=== PATIENT | male | born 1960 | race Caucasian/White ===

== ENCOUNTER → 2017-05-02 13:58 | Outpatient (CLI) | payer BC, SELFPAY ==
[2016-09-17 08:18] VITALS: BMI 23.5
--- NOTE | 2017-05-02 14:00 | ECHOD_ITS ---
Reason For Study: CAD Procedure This was a 2D Doppler, Color Flow transthoracic echocardiogram. Exam performed in department. Left Ventricle Normal size and thickness. The estimated ejection fraction is 65 %. Normal diastology for age. No regional wall motion abnormalities noted. Right Ventricle Normal size and thickness. Normal systolic function. Atria Normal left atrium. Normal right atrium. Normal atrial septum. Mitral Valve The mitral valve is structurally normal. No prolapse or stenosis seen. Trivial mitral valve insufficiency. Tricuspid Valve Normal tricuspid valve. Unable to estimate RV systolic pressure/pulmonary artery pressure due to technically difficult study. Aortic Valve Trisinus/trileaflet aortic valve. Mild focal aortic valve thickening. Pulmonic Valve Normal pulmonic valve. Great Vessels Normal aortic root. Normal arch. Normal inferior vena cava. Inferior vena cava collapse with sniff. Pericardium/Pleural No pericardial effusion. MMode/2D Measurements & Calculations LVIDd: 4.9 cm IVSd: 0.87 cm LVOT diam: 2.0 cm LVIDs: 3.8 cm LVPWd: 0.94 cm LVOT area: 3.2 cm2 RVDd: 3.9 cm FS: 23.5 % Ao root diam: 3.3 cm LAV(MOD-bp): 54.9 ml LA A4 area: 18.4 cm2 LA dimension: 3.7 cm LAV(MOD-bp) Indexed: 27.8 ml/m2 LAV(MOD-sp2): 52.8 ml LAV(MOD-sp4): 52.0 ml RA A4 area: 16.1 cm2 Doppler Measurements & Calculations MV E max mitch: 89.3 cm/sec Ao V2 max: 130.2 cm/sec LV V1 max: 114.7 cm/sec MV A max mitch: 36.4 cm/sec Ao max P.8 mmHg LV V1 max P.3 mmHg MV E/A: 2.4 CONNIE(V,D): 2.8 cm2 PA V2 max: 107.7 cm/sec Interpretation Summary The estimated ejection fraction is 65 %. Normal diastology for age. Trivial to mild mitral valve insufficiency. Unable to estimate RV systolic pressure/pulmonary artery pressure due to technically difficult study. Compared to echo report dated 09/17/2016, LV function has completely normalized. MR remains about the same. Ordering Physician: Benny Gale Referring Physician: EDNA JC Performed By: Cecile Vann, LUCICS, RVT
== END ==
PROVIDERS: Family Provider Family Medicine; PCP Family Medicine; Visit Provider Internal Medicine Cardiovascular Disease
DX: I25.810 Atherosclerosis of coronary artery bypass graft(s) without angina pectoris (principal); F17.200 Nicotine dependence, unspecified, uncomplicated; Z95.5 Presence of coronary angioplasty implant and graft
CPT/HCPCS: 93306

== ENCOUNTER → 2018-04-24 09:31 | Outpatient (CLI) | payer BC, SELFPAY ==
[2016-09-17 08:18] VITALS: BMI 23.5
[2018-03-31 14:45] VITALS: BMI 22.8
--- NOTE | 2018-04-24 09:37 | STEWCON_ITS ---
Reason For Study: CAD Stress Results Protocol: Romie Protocol Maximum Predicted HR: 165 bpm Target HR: 140 bpm % Maximum Predicted HR: 85 % DurationHeart Rate Stage (mm:ss) (bpm) BP Comment BASELINE 62 150/883 CC DEFINITY STAGE 1 3:00 104 170/82 STAGE 2 3:00 141 210/841 CC DEFINITY RECOVERY 74 158/72 Stress Duration: 6:00 mm:ss Maximum Stress HR: 141 bpm Baseline Echocardiogram Findings The estimated ejection fraction is 55 %. Stress Echo Wall motion Data Resting WM Intermediate WM Stress WM Resting Wall Motion Wall Motion Stress Lateral-Basal: Mildly No regional wall motion hypokinetic. abnormalities noted. EKG Data Normal intervals are noted. The patient exercised according to the regular Romie protocol for a total duration of 6:00. The maximum heart rate attained was 146 beats per minute. This was 88% of maximum predicted heart rate. The patient exercised into stage 3 of the Romie protocol. During stress, there were no ST or T wave changes noted to suggest ischemia. No clinical angina was noted. Interpretation Summary The estimated ejection fraction is 55 %. Normal, adequate, treadmill echocardiogram. Negative for ischemia by EKG and echocardiographic criteria. Rare PVCs noted. Hypertensive blood pressure response to exercise. Below average exercise capacity for age. Patient had baseline mild inferior lateral hypokinesis due to previous myocardial infarction. During exercise all doshi contracted normally. Final LVEF of 65%. Test terminated due to the attainment of target heart rate, dyspnea and leg discomfort. No omplications.Decreased sensitivity due to poor echo windows requiring Definity enhancing agent. The study was technically difficult. Contrast injection was performed. Ordering Physician: Benny Gale Referring Physician: Benny Gale Performed By: Adrienne Marcus RDCS
== END ==
PROVIDERS: Family Provider Family Medicine; PCP Family Medicine; Referring Provider Internal Medicine Cardiovascular Disease; Visit Provider Internal Medicine Cardiovascular Disease
DX: I25.10 Atherosclerotic heart disease of native coronary artery without angina pectoris (principal); E78.5 Hyperlipidemia, unspecified; Z95.5 Presence of coronary angioplasty implant and graft
CPT/HCPCS: 93017; 93350; Q9957; A4216; C8928

== ENCOUNTER → 2018-11-04 14:55 | Outpatient (CLI) | payer BC, SELFPAY ==
[2016-09-17 08:18] VITALS: BMI 23.5
[2018-10-17 13:57] VITALS: BMI 22.1
--- NOTE | 2018-11-04 14:58 | ECHOD_ITS ---
Reason For Study: CHF Procedure This was a 2D Doppler, Color Flow transthoracic echocardiogram. Exam performed in department. Left Ventricle Normal size and thickness. The estimated ejection fraction is 65 %. Septal motion consistent with IVCD. Normal diastology for age. No regional wall motion abnormalities noted. Right Ventricle Normal size and thickness. Normal systolic function. Atria Normal left atrium. Normal right atrium. Normal atrial septum. Mitral Valve The mitral valve is structurally normal. No prolapse or stenosis seen. Trivial mitral valve insufficiency. Tricuspid Valve Normal tricuspid valve. Unable to estimate RV systolic pressure due to insufficient tricuspid regurgitant envelope. Aortic Valve Normal aortic valve. Trisinus/trileaflet aortic valve. Pulmonic Valve Normal pulmonic valve. Great Vessels Normal aortic root. Normal arch. Normal inferior vena cava. Inferior vena cava collapse with sniff. Pericardium/Pleural No pericardial effusion. MMode/2D Measurements & Calculations LVIDd: 4.9 cm IVSd: 0.81 cm Ao root diam: 3.2 cm LVIDs: 3.4 cm LVPWd: 0.77 cm RVDd: 3.5 cm FS: 30.9 % LAV(MOD-bp): 45.5 ml LVAd ap4: 32.5 cm2 SV(MOD-sp4): 59.6 ml LAV(MOD-bp) Indexed: 23.8 ml/m2 EDV(MOD-sp4): 106.5 ml LAV(MOD-sp2): 39.8 ml EDV(sp4-el): 111.0 ml LAV(MOD-sp4): 47.1 ml LVAs ap4: 19.8 cm2 ESV(MOD-sp4): 46.9 ml ESV(sp4-el): 49.0 ml EF(MOD-sp4): 56.0 % EF(sp4-el): 55.9 % SV(sp4-el): 62.0 ml LA A4 area: 18.6 cm2 LA dimension(2D): 3.2 cm RA A4 area: 17.3 cm2 Time Measurements MV dec time: 0.22 sec Doppler Measurements & Calculations MV E max kalpesh: 102.6 cm/sec Lat Peak E' Kalpesh: 18.0 cm/sec Med Peak E' Kalpesh: 10.7 cm/sec MV A max kalpesh: 45.9 cm/sec E/E' lat: 5.7 E/E' med: 9.6 MV E/A: 2.2 Ao V2 max: 138.4 cm/sec LV V1 max: 119.4 cm/sec Ao max P.7 mmHg LV V1 max P.7 mmHg Interpretation Summary The estimated ejection fraction is 65 %. Normal diastology for age. Trivial mitral valve insufficiency. Unable to estimate RV systolic pressure due to insufficient tricuspid regurgitant envelope. Compared to echo report dated 05/02/2017, no appreciable changes noted. Ordering Physician: Benny Gale Referring Physician: EDNA JC Performed By: Adrienne Marcus RDCS
== END ==
PROVIDERS: Family Provider Family Medicine; PCP Family Medicine; Referring Provider Internal Medicine Cardiovascular Disease; Visit Provider Internal Medicine Cardiovascular Disease
DX: I25.10 Atherosclerotic heart disease of native coronary artery without angina pectoris (principal); I11.0 Hypertensive heart disease with heart failure; I50.9 Heart failure, unspecified; I25.2 Old myocardial infarction; Z95.5 Presence of coronary angioplasty implant and graft
CPT/HCPCS: 93306

== ENCOUNTER → 2018-11-28 17:00 | Outpatient (CLI) | payer BC, SELFPAY ==
[2016-09-17 08:18] VITALS: BMI 23.5
[2018-10-17 13:57] VITALS: BMI 22.1
== END ==
PROVIDERS: Family Provider Family Medicine; PCP Family Medicine; Referring Provider Family Medicine; Visit Provider Family Medicine
DX: L02.212 Cutaneous abscess of back [any part, except buttock and flank] (principal)
CPT/HCPCS: 87070; 87077; 87186; 87205

== ENCOUNTER 2018-12-26 09:18 | Day surgery (SDC) | payer BC, SELFPAY ==
[2018-12-03 16:48] VITALS: BMI 23.5
[2018-12-09 15:11] VITALS: BMI 22.1
--- NOTE | 2018-12-15 08:43 | HP_ITS ---
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 [Ecotrin] 81 mg PO DAILY@0800 #30 tab 09/17/16 [Rx Confirmed 12/09/18] atorvastatin 80 mg tablet 80 mg PO QHS #90 tab 03/31/18 [Rx Confirmed 12/09/18] metoprolol succinate ER 25 mg tablet,extended release 24 hr 12.5 mg PO DAILY #45 tab 03/31/18 [Rx Confirmed 12/09/18] ticagrelor 90 mg tablet 90 mg PO BID #180 tab 03/31/18 [Rx Confirmed 12/09/18] PFSH Medical History Nicotine dependence (Resolved) Hypertension (Chronic) Atherosclerosis of coronary artery of [place] heart without angina pectoris (Chronic) ST elevation (STEMI) myocardial infarction (Chronic) Surgical History History of coronary artery stent placement (Chronic 09/15/16) Family History Mother Negative for ASCVD Social History (Updated 12/15/18 @ 08:43 by Nelson Franco MD) Smoking Status: Former smoker quit date: 09/15/16 pack-years: 65 alcohol intake: current alcohol intake frequency: a few times a week substance use type: former substance user HPI HPI HPI: TERRY STAHL, is a 58 M who presents to the office today for HPI HPI Surgical H&P: Yes HPI: TERRY STAHL, is a 58 M who presents to the office today for skin lesion on his back. He reports this is been there for 2 months. He was referred for possible malignancy. ROS General General: No weight change or fatigue Skin Additional Details: Skin lesion on his back Cardio Cardiovascular: No murmur, pacemaker, heart disease, atrial fibrillation, high blood pressure, heart attack, heart stent, palpitations, shortness of breat with exertion or chest pain Psych Psychiatric: No depression or anxiety Resp Respiratory: No shortness of breath, No sleep apnea, No cough, No COPD, No asthma, No emphysema, No wheezing Gastro Gastrointestinal: No abdominal pain, No nausea or vomiting, No diarrhea, No constipation, No blood in stool, No acid reflux, No hemorrhoids, No ulcers, No gallbladder problem, No black,tarry stools Clarence Hematologic: No blood thinners Exam Const General: cooperative Orientation: alert, oriented x3 Resp Effort & Inspection: normal respiratory effort Auscultation: clear to auscultation bilaterally Cardio Rate: regular rate Rhythm: regular rhythm Heart Sounds: no murmurs GI Inspection: non-distended Palpation: soft, nontender Skin Other: The patient has a skin lesion on his right lower back which measures approximately 2 cm in diameter. There is ulceration. There is some surrounding erythema. Assessment & Plan Problems 1. Skin lesion L98.9 Plan The patient has a 2 cm skin lesion on his right lower back. The patient has some surrounding erythema. This may be an infected back lesion but it is concerning for malignancy. I discussed excision under local anesthesia. I discussed the risks including bleeding, infection, need for skin graft. The patient agrees to local excision. Nelson Franco MD Pager: [facility] [address] [place] [address], [address] [place] [address] Office: Coding Level of Care Code Off vis,new,level 3 Diagnoses Skin lesion L98.9 12/15/18 0843 <Electronically signed by Nelson loredo MD> Date _ Nelson Franco MD I have re-examined the patient. There are no clinical changes since date of exam.
--- NOTE | 2018-12-26 | LES_PTH ---
PATIENT: TERRY STAHL [place] [facility] [id number] AGE/SX: 58/M ROOM: RE12/26/[address]: Dr. Nelson Franco MD : 1960 BED: DIS: 12/26/2018 SPEC #: [id number] RECD: 12/26/18 13:14 STATUS: RENNY BRINDA #: [id number] [place]: 12/26/18 00:[address]: Nelson Franco DEPT: SURGICAL PATHOLOGY RECD BY: Zhang Villavicencio ENTERED: 12/26/18 13:15 SP TYPE: Lesion OTHR DR: Dr. 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 Associated chronic and focal acute inflammation. See comment. AM:cody 12/29/18 COMMENT The lesion measures 1.6 cm in greatest dimension and is completely excised in the planes examined. Case has been reviewed in consultation with Dr. Valderrama who concurs with the above diagnosis. IDC:SJ MICROSCOPIC DESCRIPTION Slides are reviewed. GROSS DESCRIPTION Received in fixative is one container labeled with the patient's name and designated skin lesion of back. The specimen consists of an ellipse of light rojas excised skin measuring 4.1 x 2.2 and a depth of excision measuring 0.5 cm. The specimen has been oriented and is differentially inked as follows: medial - red, lateral - orange, superior - blue, inferior - black, deep -green. The cutaneous surface displays an ovoid, raised light pink-white lesion measuring 1.6 x 1.5 cm. The specimen is totally submitted in one cassette. / AM:cody 12/26/18 TC:0 CPT: 37021
[2018-12-26 09:47] VITALS: BP 127/88; PULSE 50; RESP 16; TEMP 36.1; O2SAT 100; BMI 23.6
[2018-12-26] MEDS: Lactated Ringers 1,000 ML 100 ML IV (10:12)
[2018-12-26] MEDS: Cefazolin 2 GM in 0.9% Normal Saline 100 ML IV (10:41)
[2018-12-26] MEDS: Bupivacaine Mpf 0.5% 30 ML VIAL (10:51)
--- NOTE | 2018-12-26 11:26 | PCM.DC ---
You will use the following diet at home:: No restrictions, Regular Your food should be the consistency of: Regular Discharge Activity: Return to Normal Activity, No Restrictions Call your doctor if your incision/area has: Continuous Slow Oozing, Sudden Increased Bleeding, Increased Pain/ Swelling, Increased Redness, Foul Smelling Discharge, Swelling at the incision site Call your doctor if you observe: Fever of 101 or Higher Change Dressing in (Days):: 2 - shower over dressing starting tomorrow Additional Instructions: Resume blood thinners saturday Allergies/Adverse Reactions: Allergies No Known Allergies Allergy (Verified 12/26/18 09:45) Medications to take at Discharge Aspirin E.C. [Ecotrin] 81 mg PO DAILY@0800 #30 tab 09/17/16 atorvastatin 80 mg tablet 80 mg PO QHS #90 tab 03/31/18 metoprolol succinate ER 25 mg tablet,extended release 24 hr 12.5 mg PO DAILY #45 tab 03/31/18 ticagrelor 90 mg tablet 90 mg PO BID #180 tab 03/31/18 Oxycodone HCl/Acetaminophen [Percocet 5/325] 1 - 2 tablet PO Q4H PRN PRN 3 Days #15 tablet 12/26/18 The following prescriptions were given: Oxycodone HCl/Acetaminophen [Percocet 5/325] 1 - 2 tablet PO Q4H PRN PRN 3 Days #15 tablet PRN Reason: Pain Transmission Status: Sent to [facility] Primary Care Physician: Quinton Kraus MD [Primary Care Provider] - Test Results: Test results from this visit will be discussed in further detail at your follow-up appointment, if applicable. Please Follow Up With: Nelson Franco MD When: Please call to schedule 1 week follow up appointment. [phone]
--- NOTE | 2018-12-26 11:27 | PCM.OPRPT ---
Problem List (1) Skin lesion of back Status: Acute Report of Operation Date of Procedure: 12/26/18 Pre-Operative Diagnosis: Skin lesion of the right lower back Post-Operative Diagnosis: Same Surgery/Procedure Performed:: Excision of skin lesion back Specimen's removed: Skin lesion with suture marking the medial margin and superior margin Description of Procedure: The patient was brought back to the operating room and placed in the left lateral decubitus position. The back was prepped and draped in usual sterile fashion. Skin marking was made with half centimeter margins surrounding the lesion. Next a mixture of lidocaine and Marcaine were injected at the proposed incision site. An incision was made with a scalpel. The lesion was sharply dissected free and circumferentially excised. The skin lesion measured approximately 4 cm in diameter including the margins. The specimen was marked and pressure was held on the incision. Next electrocautery was used to maintain hemostasis. The cavity was irrigated and dried. The incision was closed with interrupted vertical mattress 3-0 nylon sutures. A bandage was then applied. Patient was taken to PACU in stable condition and tolerated the procedure well. - Admit VTE Documentation VTE Mechan Device Prophylaxis: SCD's
== END 2018-12-26 11:34 | disposition home or self-care (01) ==
LOC: SDC 09:23 → AC 09:27
PROVIDERS: Family Provider Family Medicine; PCP Family Medicine; Referring Provider Surgery; Visit Provider Surgery
PROC: (CPT 11604; principal; 2018-12-26 10:50)
DX: C44.529 Squamous cell carcinoma of skin of other part of trunk (principal); I25.10 Atherosclerotic heart disease of native coronary artery without angina pectoris; I25.2 Old myocardial infarction; I10 Essential (primary) hypertension; Z95.5 Presence of coronary angioplasty implant and graft; Z79.82 Long term (current) use of aspirin; Z79.899 Other long term (current) drug therapy; Z87.891 Personal history of nicotine dependence
CPT/HCPCS: 11604; 88305; J7120

== ENCOUNTER → 2020-07-15 08:22 | Outpatient (CLI) | payer OTHER, SELFPAY ==
[2018-12-03 16:48] VITALS: BMI 23.5
[2019-11-09 15:35] VITALS: BMI 21.5
--- NOTE | 2020-07-15 08:26 | CT_ITS ---
STUDY: CT SOFT TISSUE NECK WITH CONTRAST REASON FOR EXAM: Male, 60 years old. LYMPHADENOPATHY. Left neck swelling. This improved with antibiotic therapy. RADIATION DOSAGE (If Supplied By Facility): CTDIvol = ( 20.59 ) mGy, DLP = ( 1090.65 ) mGycm TECHNIQUE: The patient was scanned in a multi-detector CT scanner. High resolution transaxial imaging was performed following intravenous administration of IV 75mL Isovue-370. Sagittal and coronal images were reconstructed. Individualized dose optimization techniques were used for this CT. COMPARISON: None. FINDINGS: There is a 6.9 mm x 8.9 mm rounded enhancing density in the deep inferior aspect of the right parotid gland. Correlation with ultrasound is recommended. 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 Normal bilateral parapharyngeal spaces. Normal bilateral carotid spaces. Normal bilateral sublingual and submandibular glands and spaces. Normal visualized nasopharynx. Normal retropharyngeal space. Normal perivertebral space. Normal visualized bilateral faucial tonsils. The visualized tongue, tongue base and oropharynx are normal. The visualized cervical lymph nodes (levels I-) are within normal size limits, and maintain normal morphology. There is no demonstrated solid or cystic mass lesion. There is no abnormal contrast enhancement. Normal epiglottis, bilateral vallecula and hypopharynx. The pre-epiglottic and paraglottic adipose spaces are normal. Normal visualized bilateral piriform sinuses, aryepiglottic folds, vocal cords, and arytenoid-cricoid articulations. Normal subglottic trachea. Normal bilateral lobes of the thyroid gland. Normal visualized pulmonary apices. Normal visualized paranasal sinuses. There is multilevel degenerative changes of the cervical spine. CT/Soft Tissue Neck WITH Contrast IMPRESSION: 6.9 mm x 8.9 mm enhancing density in the deep inferior aspect of the right parotid gland. Correlation with ultrasound is recommended for further evaluation. Electronically Signed: Mikle Smith MD at 9:10 EDT , Service support ,
== END ==
PROVIDERS: PCP Family Medicine; Referring Provider Family Medicine; Visit Provider Family Medicine
DX: R59.1 Generalized enlarged lymph nodes (principal)
CPT/HCPCS: 70491; Q9967

== ENCOUNTER → 2020-08-01 15:47 | Outpatient (CLI) | payer OTHER, SELFPAY ==
[2018-12-03 16:48] VITALS: BMI 23.5
[2019-11-09 15:35] VITALS: BMI 21.5
--- NOTE | 2020-08-01 15:52 | US_ITS ---
STUDY: PAROTID ULTRASOUND REASON FOR EXAM: Male, 60 years old. Facial swelling TECHNIQUE: Sonographic evaluation of the parotid glands and nearby subcutaneous tissue COMPARISON: CT scan from 07/15/2020 FINDINGS: Right parotid gland measures 3.6 x 2.76 x 2.3 cm and contains a 0.7 x 0.5 x 0.4 cm nodule with fatty hilum consistent with physiologic lymph node. The left parotid gland measures 4.3 x 1.98 x 2.2 cm it also contains a hypoechoic nodule with fatty hilum measuring 0.6 x 0.6 x 0.3 cm. This is also consistent with a physiologic lymph node. No suspicious shadowing solid nodule or architectural distortion. US/Head/Neck Soft Tissue IMPRESSION: Normal sized homogeneous parotid glands containing subcentimeter physiologic lymph nodes. No suspicious nodule or evidence of inflammation Electronically Signed: Evgeny Vega MD at 9:47 EDT , Service support ,
== END ==
PROVIDERS: PCP Family Medicine; Referring Provider Family Medicine; Visit Provider Family Medicine
DX: K11.8 Other diseases of salivary glands (principal)
CPT/HCPCS: 76536

== ENCOUNTER 2022-07-01 14:33 | Emergency (ER) | payer OTHER, SELFPAY ==
[2018-12-03 16:48] VITALS: BMI 23.5
[2022-07-01 14:34] VITALS: BP 169/87; PULSE 49; RESP 14; TEMP 36.1; O2SAT 100; BMI 20.7
--- NOTE | 2022-07-01 15:07 | ED.VIS.BACK ---
HPI History of Present Illness Chief Complaint: Back Narrative Narrative: 62-year-old male here for back pain. Patient denies any trauma. States has been having severe back pain that started today. Pain is located the right lower back. It is nonradiating. It is worse with sitting. Patient denies any saddle anesthesia, urinary tension, bowel or bladder incontinence, lower extremity weakness, fever or IV drug use, no recent spinal manipulation or surgery, no recent urinary catheterization. PFSH PFS Medical History (Updated 07/01/22 @ 16:[address] Hang Manjarrez, DO) Atherosclerosis of coronary artery of [place] heart without angina pectoris Hypertension Nicotine dependence ST elevation (STEMI) myocardial infarction Home Medications oxycodone 5 mg capsule 5 mg PO Q6H PRN pain 4 days #16 caps 07/01/22 [Rx Last Taken Unknown] Allergy/AdvReac Type Severity Reaction Status Date / Time No Known Allergies Allergy Verified 04/23/19 15:11 Family History Mother Negative for ASCVD Surgical History History of coronary artery stent placement (09/15/16) History of squamous cell carcinoma excision (~11/2018) Social History (Updated 11/09/19 @ 15:[address] Benny Gale MD) Smoking Status: Former smoker quit date: 09/15/16 pack-years: 65 alcohol intake: current alcohol intake frequency: a few times a week substance use type: former substance user caffeine: Yes Type: coffee Number of servings: 2 ROS ROS ED ROS Narrative Constitutional: Denies fever HEENT: Denies sore throat Neck: Denies neck pain Cardiovascular: Denies chest pain, syncope Respiratory: Denies shortness of breath GI: Denies nausea vomiting or abdominal pain : Denies changes in urinary habits, denies bowel or bladder incontinence Musculoskeletal: Denies muscle or joint pain Back: Endorses back pain Neurologic: Denies numbness weakness or loss of sensation Skin denies rash EXAM Physical Exam Narrative Exam Narrative: Nursing triage notes reviewed, Vital signs reviewed Constitutional: please see mdm HENT: MMM Eyes: Pupils equal round and reactive to light, Extraocular muscles intact Neck: No stridor, no JVD, full neck ROM Lungs: Clear to auscultation, No wheezing or rales. No increased work of breathing, no conversational dyspnea, no accessory muscle use, no nasal flaring. No respiratory distress noted Heart: Regular rate and rhythm, No murmurs, No rubs and No gallops, 2+ distal pulses (radial, femoral, posterior tibial) in all extremities Abdomen: Soft, there is no tenderness, rigidity, rebound or guarding, no obvious peritoneal signs, no palpable pulsatile abdominal masses, no auscultated abdominal bruit : No CVAT Extremities: No edema Back: TTP over right lower back, TTP over right piriformis muscle, no midline step-offs or deformities. Neuro: Intact sensation L1-S1 dermatomal distributions. Intact 5/5 strength in hip flexion (T12-L3). Knee extension (L2-L4). Ankle dorsiflexion (L4-L5). Ankle plantar flexion (S1). Great toe extension (L5). 2+ patellar and Achilles DTRs. Skin: No rash or lesions noted Const Vital Signs: 07/01/22 14:34 Temperature 97 F L Temperature Source Temporal Pulse Rate 49 L Respiratory Rate 14 Blood Pressure 169/87 H Blood Pressure Mean 114 Pulse Ox 100 Oxygen Delivery Method Room Air MDM MDM MDM Narrative Medical decision making narrative: Chief Complaint: Back pain External records reviewed: No recent MRIs of the back MDM The patient presented complaining of back pain. There was no history of recent fall or trauma. There was no evidence to support genitourinary etiology. There is also no evidence to suggest vascular pathology such as AAA dissection. No fevers or other evidence to suspect infectious processes, abscess, osteomyelitis etc. The patient?s neurological exam is normal with normal motor and sensory. There is no saddle paresthesias reported and no bowel or bladder incontinence or retention. I suspect the pain is mechanical in nature. Clinical suspicion, plan of care and management was discussed with the patient. The patient was instructed to follow up with their health care provider. The patient was also instructed to return if the pain worsened, changed, or developed weakness or bowel or bladder trouble. The patient agreed with plan. I completed a structured, evidence-based clinical evaluation to screen for acute non-traumatic spinal emergencies. The patient has a normal detailed neurologic exam and red flag historical factors were negative The evidence indicates that the patient is very low risk for an acute spinal emergency and this is consistent with my clinical intuition. The risk of further workup is higher than the likelihood of the patient having a spinal epidural abscess or other dangerous emergency spinal condition. It is, therefore, in the patient?s best interest not to do additional emergent testing at this time. Shared Decision-Making I have discussed with the patient my clinical impression and the result of an evidence-based clinical evaluation to screen for spinal epidural abscess and other spinal emergencies, as well as the risk of further testing and hospitalization. The evidence shows that the risk for an acute spinal emergency is less than 1%. Although the risk of an acute spinal emergency has not been completely eliminated, the risks of further testing likely exceed any potential benefit, and the patient agrees with not pursuing further emergent evaluation for causes of back pain at this time. Factors affecting care: Hyperlipidemia, CAD, hypertension Social determinants of health: History obtained from others: Consults: None Discharge Plan Triage Chief Complaint: Back ED Provider: Hang Manjarrez Dx/Rx/DC Orders Clinical Impression: Acute lumbar radiculopathy Instructions: ED Sciatica Prescriptions: New oxycodone 5 mg capsule 5 mg PO Q6H PRN (Reason: pain) 4 Days Qty: 16 0RF Stand Alone Forms: ED Work / School Excuse Primary Care Provider: Quinton Kraus Referrals: Quinton Kraus MD [Primary Care Provider] - Activity Restrictions/Additional Instructions: Thank you for trusting us with your care today! Please take Tylenol (2 pills, 650 mg), ibuprofen (2 pills, 400 mg) every 6 hours as needed for pain and fever control. If this does not control your pain please take oxycodone. Please return to the emergency department if your symptoms change or worsen. Please follow with your primary care physician for further outpatient evaluation and management. Disposition Disposition: Home, Self Care Discharge Date/Time: 07/01/22 17:00
[2022-07-01] MEDS: oxyCODONE 5 MG Tablet PO (16:05)
[2022-07-01] MEDS: Acetaminophen 325 MG Tablet 650 MG PO (16:05)
[2022-07-01] MEDS: Ibuprofen 200 MG Tablet 400 MG PO (16:05)
[2022-07-01] MEDS: dexAMETHasone 4 MG Tablet 6 MG PO (16:58)
== END 2022-07-01 17:00 | disposition home or self-care (01) ==
PROVIDERS: Emergency Provider Emergency Medicine; PCP Family Medicine; Visit Provider Emergency Medicine
DX: M54.16 Radiculopathy, lumbar region (principal); I25.10 Atherosclerotic heart disease of native coronary artery without angina pectoris; I25.2 Old myocardial infarction; Z87.891 Personal history of nicotine dependence; Z95.5 Presence of coronary angioplasty implant and graft
CPT/HCPCS: 99281; 99283

== ENCOUNTER 2023-01-19 02:06 | Inpatient (IN) | payer OTHER, SELFPAY ==
[2018-12-03 16:48] VITALS: BMI 23.5
[2023-01-19] VITALS (10 sets, daily range): BP systolic 117–166; BP diastolic 64–84; PULSE 61–82; RESP 16–20; TEMP 35.9–36.8; O2SAT 92–100; BMI 21.2; BMI 20.2
--- NOTE | 2023-01-19 02:24 | RAD_ITS ---
INDICATION: chest pain EXAMINATION/TECHNIQUE: X-RAY - XR Chest 2 Views COMPARISON: None. FINDINGS: LINES/DEVICES: None. LUNGS: No consolidation or evidence of an effusion. No evidence of edema or a pneumothorax. Hyperinflation of the lungs which may represent COPD. MEDIASTINUM AND CARDIOVASCULAR STRUCTURES: Cardiac silhouette is normal in size and contour. Mediastinum is unremarkable. BONES AND SOFT TISSUES: No acute abnormality. RAD/Chest PA and Lateral IMPRESSION: No evidence of acute cardiopulmonary disease. Electronically Signed: Eleazar New DO at 2:44 EDT ,
--- NOTE | 2023-01-19 02:24 | EKG12_ITS ---
Test Reason : CP Blood Pressure : / mmHG Vent. Rate : 067 BPM Atrial Rate : 067 BPM P-R Int : 144 ms QRS Dur : 088 ms QT Int : 374 ms P-R-T Axes : 085 -09 066 degrees QTc Int : 395 ms Sinus rhythm with occasional Premature ventricular complexes Possible Left atrial enlargement Borderline ECG Confirmed by LJ MCGOWAN, EUGENIA ([id number]), fashion editor TAYLOR SIMMONS ([id number]) on 01/28/2023 6:57:08 AM Referred By: LALIT Confirmed By:LULU CALHOUN MD
--- NOTE | 2023-01-19 02:26 | EDS_ITS ---
HPI History of Present Illness Chief Complaint: Chest Pain Informant: patient, spouse/S.O. and EMS Narrative Narrative: Patient is a 62-year-old male with past medical history of coronary artery disease requiring stent placement in 2017. He also has a history of nicotine abuse/dependence. Patient states he has had a head cold for the last few days with some congestion drainage and cough. He states he woke around 1245 this evening secondary to feeling shortness of breath. He states he then noticed he was having some left anterior chest pain. He states there was no radiation of the pain to his neck back or down the arm. Patient reports he did feel s weaty. He states that because of his previous heart attack history he was concerned that symptoms were related to a repeat heart attack and therefore called EMS. Patient states that the pain lasted for approximately 1245 until 130/145 and then resolved. He states he did take a full-strength aspirin prior to arrival [facility] Medical History Atherosclerosis of coronary artery of [place] heart without angina pectoris Hypertension Nicotine dependence ST elevation (STEMI) myocardial infarction Home Medications NK 01/19/23 [History Last Taken Unknown] Allergy/AdvReac Type Severity Reaction Status Date / Time No Known Allergies Allergy Verified 01/19/23 02:08 Family History (Updated 01/19/23 @ 02:[address] Winnie Julien MD) Mother Negative for ASCVD Father Cancer Surgical History (Updated 01/19/23 @ 05:[address] Bandar Jeffries DO) History of coronary artery stent placement (09/15/16) History of squamous cell carcinoma excision (~11/2018) Social History (Updated 11/09/19 @ 15:[address] Benny Gale MD) household members: spouse Smoking Status: Current every day smoker tobacco type: cigarettes and cigars alcohol intake: current alcohol intake frequency: a few times a week substance use type: former substance user caffeine: Yes Type: coffee Number of servings: 2 ROS ROS ED Constitutional Constitutional ED: Reports chills, subjective and sweats; Denies fever(s) ENT ENT ED: Reports rhinorrhea and sore throat Cardiovascular Cardiovascular: Reports chest pain; Denies palpitations or racing heartbeat Respiratory/Chest Respiratory/Chest: Reports cough and dyspnea Gastrointestinal Gastrointestinal: Denies abdominal pain, diarrhea, nausea or vomiting Genitourinary Genitourinary ED: Denies dysuria Musculoskeletal Musculoskeletal: Denies myalgias Integumentary Denies rash Neurologic Neurologic: Denies headache(s) Hematologic/Lymphatic Hematologic/Lymphatic: Denies easy bleeding or easy bruising EXAM Physical Exam Const Vital Signs: 01/19/23 02:08 01/19/23 02:11 01/19/23 02:24 Temperature 96.7 F L 96.7 F L Temperature Source Temporal Temporal Pulse Rate 65 75 Respiratory Rate 16 Respiratory Effort Short of Breath Blood Pressure 166/84 H 166/84 H Blood Pressure Mean 111 111 Pulse Ox 100 97 Oxygen Delivery Method Room Air Room Air 01/19/23 03:36 Temperature Temperature Source Pulse Rate 61 Respiratory Rate 16 Respiratory Effort Blood Pressure 120/76 Blood Pressure Mean 90 Pulse Ox 95 Oxygen Delivery Method Room Air Positive well nourished and well developed General Appearance ED: well developed; Negative for pallor HEENT HEENT Narrative: Cobblestoning the posterior pharynx consistent with sinus drainage without airway edema or compromise No secondary changes to suggest infection Eyes PERRL and EOMs intact bilaterally General Eye ED: Negative for scleral icterus Neck supple and no JVD Neck Narrative: No nuchal rigidity or meningeal signs noted Chest Wall palpation of chest normal Chest Narrative: No bony deformity or crepitance Resp normal respiratory effort Resp Narrative: Breath sounds are diminished throughout with diffuse expiratory wheeze consistent with history of nicotine abuse/dependence However there is no nasal flaring retractions tachypnea or accessory muscle use Cardio regular rate and regular rhythm Rate: other Other Details: Heart is regular rate and rhythm without murmur rubs or gallops There is an occasional ectopic beat noted Radial and carotid pulses are equal and symmetric GI normal to inspection, nondistended, normoactive bowel sounds, non-tender, non- distended and no masses GI Narrative: Soft nontender and nondistended with normal active bowel sounds. No voluntary guarding or rigidity. No pulsatile mass or fluid wave Auscultation: normoactive bowel sounds Palpation: soft Extremity normal to inspection Extremity Narrative: No asymmetric edema no pitting edema negative Homans' sign bilaterally Neuro oriented x3, CN's II-XII intact bilaterally and no sensory deficits noted Sensorium / Orientation: alert Motor Exam: strength 5/5 throughout Psych mental status grossly normal Skin no rashes or lesions noted General Skin Exam: Negative for jaundice or pallor MDM MDM MDM Narrative Medical decision making narrative: Patient arrived to the ER slightly hypertensive otherwise with stable vitals. He reported sudden onset chest discomfort and has a known history of CAD. Differential diagnosis is acute coronary syndrome versus pulm embolus versus dissection and as he also reports he had congestion and drainage there is concern for pneumonia versus pneumothorax versus viral URI or muscular strain. Patient's EKG displayed no STEMI and as he was pain-free on arrival there is no need for emergent cardiology consultation. A work-up was obtained and his initial troponin is 25 but his 2-hour delta elevated by approximately 475 points to a value of 498. The patient's D-dimer is normal going against pulmonary embolus or dissection and this correlates with the fact he is pain-free. Case was discussed with cardiology on-call Dr. Garcia who recommends aspirin and heparin drip. The patient took a full-strength aspirin prior to arrival in ER so therefore the heparin drip was started. Medicine was then contacted to admit the patient in order to undergo further testing and treatment regarding his non- STEMI. The patient reports he has been pain-free for his entire ER stay and vitals have been stable as well with improvement of his blood pressure without treatment History & Record Review Discussion w/independent historian: Patient and Significant other Lab Data Attestation: I reviewed the patient's lab results. Labs: Laboratory Results - last 24 hr 01/19/23 01/19/23 02:15 04:13 WBC 11.0 RBC 4.76 Hgb 15.4 Hct 47.8 MCV 100.4 H MCH 32.4 H MCHC 32.2 RDW Std Deviation 51.0 H RDW Coeff of Roman 13.5 Plt Count 207 MPV 9.7 Immature Gran % (Auto) 0.700 Neut % (Auto) 65.3 Lymph % (Auto) 20.9 Chaves % (Auto) 8.0 Eos % (Auto) 4.4 Baso % (Auto) 0.7 Absolute Neuts (auto) 7.2 Absolute Lymphs (auto) 2.30 Nucleated RBC % 0 D-Dimer Quant (PE/DVT) 0.33 Sodium 138 Potassium 3.4 L Chloride 104 Carbon Dioxide 29.0 Anion Gap 5 BUN 9 Creatinine 1.02 Estim Creat Clear Calc 73.31 Est GFR (MDRD) Af Amer 96 Est GFR (MDRD) Non-Af 79 BUN/Creatinine Ratio 8.8 L Glucose 165 H Calcium 9.0 Magnesium 2.1 Troponin I High Sens 25 498 H* Radiography Diagnostic Testing: Clinical Impression(s) from Imaging Studies Chest X-Ray 01/19/23 02:24 IMPRESSION: No evidence of acute cardiopulmonary disease. Electronically Signed: Eleazar DO Shaq at 2:44 EDT Reading Location ID and State: [facility] / [place] Tel , Service support , Chest x-ray as interpreted by the emergency medicine physician reveals no acute infiltrate pneumothorax pleural effusion or widening of the mediastinum Management Discussion w/another healthcare provider: Hospitalist and Optimization Engineer Critical Care Time Critical Care Time: Yes Critical care time (excluding procedures): Discussing w/Patient &/or Family/Grill Chef, Discussing w/Consultants and - (Critical care time of 33 minutes) Discharge Plan Triage Chief Complaint: Chest Pain ED Provider: Bandar Jeffries Dx/Rx/DC Orders Clinical Impression: Acute non-ST elevation myocardial infarction (NSTEMI), Nicotine dependence, History of coronary artery stent placement, CAD (coronary artery disease) Prescriptions: No Action NK Primary Care Provider: Quinton Kraus Referrals: Quinton Kraus MD [Primary Care Provider] - Disposition Disposition: Acute Care [facility]
[2023-01-19 02:33] LABS: Absolute Neutrophil Count 7.2 X10^3/uL (2.0-7.7); Basophil# 0.08 X10^3/uL; Basophil% 0.7 % (0-1); Eosinophil# 0.48 X10^3/uL; Eosinophils% 4.4 % (0-5); Hematocrit 47.8 % (40-54); Hemoglobin 15.4 g/dL (13.0-16.5); Lymphocyte % 20.9 % (19-41); Mean Corp Hgb Conc 32.2 g/dL (32-36); Mean Corpuscular Hgb 32.4 pg (27.0-32.0); Mean Corpuscular Volume 100.4 fL (80-94); Mean Platelet Vol. 9.7 fl (6.2-12.0); Monocyte# 0.88 X10^3/uL; NRBC Flagged by Analyzer 0 % (0-5); Neutrophil # 7.18 X10^3/uL (2.7-7.7); Neutrophil % 65.3 % (47-70); Platelet Count 207 K/mm3 (150-450); RBC Distribution Width CV 13.5 % (11.6-14.6); Red Blood Count 4.76 M/mm3 (4.6-6.2)
[2023-01-19 02:50] LABS: Anion Gap 5 (5-15); BUN 9 mg/dL (7-18); BUN/Creat Ratio 8.8 RATIO (10-20); Chloride 104 mmol/L (98-107); Creatinine, Serum 1.02 mg/dL (0.70-1.30); EST Glomerular Filtration Rate 79 mL/min (>60); Est Glom Filt Rate - Afr Amer 96 mL/min (>60); Estimated Creatinine Clearance 73.31 ml/min; Glucose 165 mg/dL (74-106); Magnesium 2.1 mg/dL (1.6-2.6); Potassium 3.4 mmol/L (3.5-5.1); Sodium Level 138 mmol/L (136-145); Troponin-I HS 25 pg/mL (3.0-78.0)
[2023-01-19 02:53] LABS: D-Dimer Quantitative (DVT/PE) 0.33 FEU/ug/m (0.27-0.49)
[2023-01-19 04:38] LABS: Troponin-I HS 498 pg/mL (3.0-78.0)
--- NOTE | 2023-01-19 04:57 | PCM.HP.STD ---
HPI - General General Date of Admission: 01/19/23 Date of Service: 01/19/23 Chief Complaint: Chest pain. HPI Narrative RICThe patient is a 62 y/o M w/ PMHx: CAD s/p PCI, HTN, HLD, Tobacco use who presents to the [facility] ED on 01/19/23 with history of onset of congestion, mild rhinorrhea and cough over the last 2 to 3 days however on day of presentation to the ED he noted awakening approximately at 12:45 PM with sensation of dyspnea with left anterior chest discomfort with no radiation with diaphoresis given his previous IA prompted ED evaluation with pain lasting from 1245 until approximately 145 following which it resolved with self administration of a full-strength aspirin prior to ED evaluation. who is present denies herself having any upper respiratory type symptoms. From discussions it does appear that patient has been off his medication including aspirin therapy and from discussions he mentioned some type of healthcare provider telling him he could come off of these but uncertain as to who this was and when exactly including off of any aspirin therapy. He rates the discomfort as more of an aching but does state it is difficult to describe it and initially rated it potentially 7-10 out of 10 in severity, currently completely resolved. notes that when she did see him he was very pale, diaphoretic with chest discomfort and describe dyspnea as well. Work-up in the ED included T96.7, heart rate 65, BP 166/84, respiratory rate 16, 100% on room air, CBC with WBC 11.0, hemoglobin 15.4, platelet 207 without marked shift, D-dimer 0.33, BMP with potassium 3.4, glucose 165 otherwise not marked appearing, magnesium 2.1, troponin 25 with repeat 498, chest x-ray with no acute cardiopulmonary finding, rapid SARS COVID and influenza antigens negative, EKG with sinus rhythm with no acute evidence of ischemia. In the ED patient initiated on heparin drip. ED discussed case with Dr. aGrcia, Cardiology. [facility] Medical History (Updated 01/19/23 @ 05:[address] Winnie Julien MD) Atherosclerosis of coronary artery of [place] heart without angina pectoris Dyslipidemia Hypertension Nicotine dependence ST elevation (STEMI) myocardial infarction Home Medications NK 01/19/23 [History Last Taken Unknown] Allergy/AdvReac Type Severity Reaction Status Date / Time No Known Allergies Allergy Verified 01/19/23 02:08 Family History (Updated 01/19/23 @ 05:[address] Winnie Julien MD) Mother No significant past medical history Father Cancer Surgical History History of coronary artery stent placement (09/15/16) History of squamous cell carcinoma excision (~11/2018) Social History (Updated 01/19/23 @ 05:[address] Winnie Julien MD) household members: spouse Smoking Status: Current some day smoker how long ago did patient quit smoking: Quit cigarettes following prior IA, now only occasional cigar. alcohol intake: current alcohol intake frequency: holidays/special occasions only substance use type: former substance user caffeine: Yes Type: coffee Number of servings: 2 ROS ROS Narrative Admission Review of Systems: CONSTITUTIONAL: No weight loss, fever, chills, + weakness or fatigue. HEENT: + Congestion, rhinorrhea. Eyes: No visual loss, blurred vision, double vision or yellow sclerae. Ears, Nose, Throat: No hearing loss, sneezing. SKIN: No rash or itching, lesions, wounds. CARDIOVASCULAR: + Chest pain/aching. No palpitations, edema, orthopnea, syncopal events. RESPIRATORY: + Shortness of breath. No cough or sputum, wheezing, hemoptysis. GASTROINTESTINAL: No anorexia, nausea, vomiting or diarrhea, abdominal pain, melena, BRBPR. GENITOURINARY: No dysuria, frequency, urgency or retention. NEUROLOGICAL: No headache, dizziness, syncope, paralysis, ataxia, numbness or tingling in the extremities, focal weakness, change in bowel or bladder control, seizure. MUSCULOSKELETAL: + muscle, back pain, joint pain or stiffness. HEMATOLOGIC: No anemia, bleeding or bruising. LYMPHATICS: No enlarged nodes. No history of splenectomy. PSYCHIATRIC: No history of depression or anxiety. ENDOCRINOLOGIC: + reports of sweating. No cold or heat intolerance. No polyuria or polydipsia. ALLERGIES: No history of asthma, hives, eczema or rhinitis. Vital Signs Vital Signs Vital Signs: 01/19/23 02:08 01/19/23 02:11 01/19/23 02:24 Temperature 96.7 F L 96.7 F L Temperature Source Temporal Temporal Pulse Rate 65 75 Respiratory Rate 16 Respiratory Effort Short of Breath Blood Pressure 166/84 H 166/84 H Blood Pressure Mean 111 111 Pulse Ox 100 97 Oxygen Delivery Method Room Air Room Air 01/19/23 03:36 Temperature Temperature Source Pulse Rate 61 Respiratory Rate 16 Respiratory Effort Blood Pressure 120/76 Blood Pressure Mean 90 Pulse Ox 95 Oxygen Delivery Method Room Air Weight Weight: 148 lb 5.938 oz Body Mass Index (BMI) 21.2 Physical Exam Narrative Physical Examination: General: Awake, alert, oriented x 3 and cooperative, seated upright in the ED bed, fatigued, flat affect. Skin: Normal color, normal turgor, no icterus, no cyanosis. HEENT: AT/NC, EOMI, PERRLA, mildly dry MM, nares mildly boggy and erythematous, no carotid bruits or JVD noted. Lungs: Mildly diminished, greater bases, proper effort, no rales, ronchi or wheezing. Heart: Regular rate and rhythm; no gallop, rub audible. Abdomen: Soft, NTTP, ND, normal BS, no appreciated HSM. Extremities: No cyanosis, clubbing, or edema. Neurological: Patient awake, alert, oriented as noted, cognitive function intact; pupils equally reactive to light and accommodation, cranial nerves II-XII grossly normal, moving all 4 extremities, no focal deficits, strength mildly globally decreased secondary to acute presentation complaints Psychiatric: Affect appears fatigued, flat, no acute evidence of depressive or anxiety feelings. Results Lab / Micro Data 01/19/23 02:15 01/19/23 02:15 Labs: Laboratory Results - last 24 hr 01/19/23 02:15: WBC 11.0, RBC 4.76, Hgb 15.4, Hct 47.8, MCV 100.4 H, MCH 32.4 H, MCHC 32.2, RDW Std Deviation 51.0 H, RDW Coeff of Roman 13.5, Plt Count 207, MPV 9.7, Immature Gran % (Auto) 0.700, Neut % (Auto) 65.3, Lymph % (Auto) 20.9, [place] % (Auto) 8.0, Eos % (Auto) 4.4, Baso % (Auto) 0.7, Absolute Neuts (auto) 7.2, Absolute Lymphs (auto) 2.30, Nucleated RBC % 0, D-Dimer Quant (PE/DVT) 0.33, Sodium 138, Potassium 3.4 L, Chloride 104, Carbon Dioxide 29.0, Anion Gap 5, BUN 9, Creatinine 1.02, Estim Creat Clear Calc 73.31, Est GFR (MDRD) Af Amer 96, Est GFR (MDRD) Non-Af 79, BUN/Creatinine Ratio 8.8 L, Glucose 165 H, Calcium 9.0, Magnesium 2.1, Troponin I High Sens 25 01/19/23 04:13: Troponin I High Sens 498 H* Micro: Microbiology 01/19/23 02:28 Nasal Secretion SARS-CoV-2 & FLU Antigen (Rapid) - Final Radiology Impression Chest X-Ray 01/19/23 02:24 IMPRESSION: No evidence of acute cardiopulmonary disease. Electronically Signed: Eleazar New, at 2:44 EDT , Assessment & Plan Assessment/Plan (1) NSTEMI, initial episode of care: PLAN: Plan The patient is a 62 y/o M w/ PMHx: CAD s/p PCI, HTN, HLD, Tobacco use who presents to the [facility] ED on 01/19/23 with history of onset of congestion, mild rhinorrhea and cough over the last 2 to 3 days however on day of presentation to the ED he noted awakening approximately at 12:45 PM with sensation of dyspnea with left anterior chest discomfort with no radiation with diaphoresis given his previous IA prompted ED evaluation with pain lasting from 1245 until approximately 145 following which it resolved with self administration of a full-strength aspirin prior to ED evaluation. #1. Chest Pain w/ Acute NSTEMI: EKG in ED w/ sinus rhythm with no acute evidence of ischemia, CXR w/ no acute cardiopulmonary findings. Trop elevated, initial 25 with repeat delta 498. Will admit to PCU, maintain on a monitored bed, continue serial cardiac enzymes and EKGs, will continue heparin drip, magnesium 2.1, continue medical management w/ asa, add back low-dose BB, add back high-dose statin w/ AM FLP. ECHO requested. Cardiology consulted, evaluation pending. Maintain NPO after midnight with judicious hydration. ASA, NG. #2. Suspected acute viral syndrome: Rapid SARS COVID antigen and influenza and negative, full respiratory viral panel requested, recent symptoms likely secondary to an acute viral syndrome, will continue just hydration given cardiac catheterization likely pending, will continue with conservative and symptomatic treatment as needed. #3. Hypokalemia: Admission K+ 3.4, magnesium 2.1, supplementation given, repeat level in AM. #4. Hyperglycemia: Admission glucose 165, possibly stress response, he will A1c requested. #5. CAD: Status post PCI, will continue aspirin, add back to previous regimen of statin as well as low-dose metoprolol. #6. Hypertension: We will restart patient previous home dose of metoprolol, PRN hydralazine. #7. Hyperlipidemia: We will restart patient previous dose of statin, FLP in AM. #8. Tobacco Abuse: Encouraged cessation, inpatient consultation per RT, NR if desired. #9. DVT prophylaxis: Heparin drip. #10. CODE STATUS: Full code. Charges/Coding Visit Charges Inpatient E&M: 94982 Init Hosp L3
[2023-01-19 05:03] LABS: Prothrombin Time (Protime)PT. 13.6 SECONDS (11.7-14.9)
[2023-01-19] MEDS: HEPARIN/D5w 25,000 UNITS 25,000 UNITS/250 ML IV.SOLN. 8 UNITS CONT INF (05:05)
[2023-01-19] MEDS: Heparin Injection (Vial) 5,000 UNIT/ML VIAL 4000 UNIT IV (05:06)
--- NOTE | 2023-01-19 05:31 | ECHOCS_ITS ---
Reason For Study: CAD/ASHD Procedure This was a 2D Doppler, Color Flow transthoracic echocardiogram. Contrast injection was performed. Exam performed portable in patient room. Left Ventricle Normal LV size. The estimated ejection fraction is 35-40 %. Stage 2 diastolic dysfunction. [place] : Hypokinetic. septal hypokinesis. Right Ventricle Normal RV size. Normal systolic function. Atria Normal left atrium. Normal right atrium. No doppler evidence for ASD. Mitral Valve There is no mitral valve stenosis. No mitral valve insufficiency. Tricuspid Valve There is no tricuspid stenosis. Trivial tricuspid valve insufficiency. Pulmonary artery systolic pressure is 50-55 mmHg. Aortic Valve Trisinus/trileaflet aortic valve. There is no aortic stenosis. No aortic valve insufficiency. Pulmonic Valve There is no pulmonic valvular stenosis. No pulmonic valve insufficiency. Great Vessels Normal aortic root. Pericardium/Pleural No pericardial effusion. Medication Diluted definity 1ml given slow IV push to enhance endocardial definition. MMode/2D Measurements & Calculations LVIDd: 4.2 cm IVSd: 0.69 cm Ao root diam: 2.5 cm LVIDs: 2.6 cm LVPWd: 0.76 cm RVDd: 3.3 cm FS: 37.8 % LAV(MOD-bp): 39.0 ml LVAd ap4: 30.8 cm2 LVAd ap2: 27.0 cm2 LAV(MOD-bp) Indexed: 21.2 ml/m2 LVLd ap4: 7.9 cm LVLd ap2: 7.0 cm LAV(MOD-sp2): 32.3 ml EDV(MOD-sp4): 98.7 ml EDV(MOD-sp2): 88.2 ml LAV(MOD-sp4): 47.4 ml EDV(sp4-el): 101.7 ml EDV(sp2-el): 88.8 ml LVAs ap4: 22.6 cm2 LVAs ap2: 17.6 cm2 LVLs ap4: 7.6 cm LVLs ap2: 6.0 cm ESV(MOD-sp4): 53.9 ml ESV(MOD-sp2): 41.5 ml ESV(sp4-el): 56.9 ml ESV(sp2-el): 44.1 ml EF(MOD-sp4): 45.4 % EF(MOD-sp2): 52.9 % EF(sp4-el): 44.1 % SV(MOD-sp4): 44.8 ml SV(MOD-sp2): 46.7 ml SV(sp4-el): 44.9 ml LA A4 area: 16.9 cm2 LA dimension(2D): 3.3 cm RA A4 area: 9.6 cm2 Time Measurements MV dec time: 0.20 sec Doppler Measurements & Calculations MV E max kalpesh: 62.8 cm/sec Lat Peak E' Kalpesh: 9.2 cm/sec Med Peak E' Kalpesh: 5.9 cm/sec MV A max kalpesh: 50.0 cm/sec E/E' lat: 6.8 E/E' med: 10.6 MV E/A: 1.3 Ao V2 max: 119.2 cm/sec LV V1 max: 82.9 cm/sec MV dec slope: 316.1 cm/sec2 Ao max P.7 mmHg LV V1 max P.7 mmHg Ao V2 mean: 84.3 cm/sec Ao mean P.1 mmHg Ao V2 VTI: 23.8 cm PA V2 max: 85.8 cm/sec TR max kalpesh: 348.7 cm/sec TR max P.6 mmHg
[2023-01-19] MEDS: Potassium Chloride Oral Tablet 20 MEQ 40 MEQ PO (08:14)
[2023-01-19] MEDS: Aspirin 81 MG TAB.CHEW PO (08:15)
[2023-01-19] MEDS: 0.9% Normal Saline (1000mL) 1,000 ML 75 ML IV (08:15)
[2023-01-19] MEDS: Metoprolol(XL)Succ 25 MG Tablet 12.5 MG PO (08:15)
[2023-01-19 08:59] LABS: Hemoglobin A1c 5.3 % (3.8-5.6)
--- NOTE | 2023-01-19 09:05 | PN.HOSP_ITS ---
Reason for Visit Reason for Visit: Diagnoses Non-ST elevation (NSTEMI) myocardial infarction (01/19/23) Subjective Subjective Feels well. No current chest pain. Objective Data Objective Data Vital Signs: Vital Signs Temp Pulse Resp BP Pulse Ox O2 Del Method 36.2 C L 68 16 120/76 96 Room Air 01/19/23 08:01 01/19/23 08:15 01/19/23 08:01 01/19/23 08:01 01/19/23 08:01 01/19/23 08:22 Oxygen Delivery Method Room Air Weight: 63.8 kg Body Mass Index (BMI) 20.2 Lab / Micro Data 01/19/23 02:15 01/19/23 02:15 Labs: Laboratory Results - last 24 hr 01/19/23 02:15: WBC 11.0, RBC 4.76, Hgb 15.4, Hct 47.8, MCV 100.4 H, MCH 32.4 H, MCHC 32.2, RDW Std Deviation 51.0 H, RDW Coeff of [place] 13.5, Plt Count 207, MPV 9.7, Immature Gran % (Auto) 0.700, Neut % (Auto) 65.3, Lymph % (Auto) 20.9, [place] % (Auto) 8.0, Eos % (Auto) 4.4, Baso % (Auto) 0.7, Absolute Neuts (auto) 7.2, Absolute Lymphs (auto) 2.30, Nucleated RBC % 0, D-Dimer Quant (PE/DVT) 0.33, Sodium 138, Potassium 3.4 L, Chloride 104, Carbon Dioxide 29.0, Anion Gap 5, BUN 9, Creatinine 1.02, Estim Creat Clear Calc 73.31, Est GFR (MDRD) Af Amer 96, Est GFR (MDRD) Non-Af 79, BUN/Creatinine Ratio 8.8 L, Glucose 165 H, Calcium 9.0, Magnesium 2.1, Troponin I High Sens 25 01/19/23 02:29: PT 13.6, INR 1.0, APTT 30.0 01/19/23 04:13: Troponin I High Sens 498 H* 01/19/23 08:12: Hemoglobin A1c 5.3 Micro: Microbiology 01/19/23 02:28 Nasal Secretion SARS-CoV-2 & FLU Antigen (Rapid) - Final Radiography Diagnostic Testing: Radiology Impression Chest X-Ray 01/19/23 02:24 IMPRESSION: No evidence of acute cardiopulmonary disease. Electronically Signed: Eleazar New DO at 2:44 EDT , Physical Exam Const alert and no apparent distress HEENT head/scalp atraumatic and moist oral mucous membranes Resp normal respiratory effort, no retractions, no use of accessory muscles and clear to auscultation bilaterally Cardio regular rate, regular rhythm, S1 normal heart sound and S2 normal heart sound GI normal to inspection, nondistended, normoactive bowel sounds, soft to palpation, non-tender and non-distended Extremity normal to inspection Assessment & Plan Assessment/Plan (1) NSTEMI, initial episode of care: PLAN: Chest Pain w/ Acute NSTEMI: EKG in ED w/ sinus rhythm with no acute evidence of ischemia, CXR w/ no acute cardiopulmonary findings. Trop peaked at 1459 heparin drip, magnesium 2.1, c ontinue medical management w/ asa, add back low-dose BB, add back high-dose statin w/ AM FLP. Echo shows and EF 35-40%. Hypokinetic apex and septum. (65% in 2019) Cardiology consulted, evaluation pending. Maintain NPO after midnight with judicious hydration. ASA, NG. PLAN: Plan URI: Suspected acute viral syndrome: Rapid SARS COVID antigen and influenza and negative, full respiratory viral panel requested, recent symptoms likely secondary to an acute viral syndrome, will continue just hydration given cardiac catheterization likely pending, will continue with conservative and symptomatic treatment as needed. Chronic conditions: * CAD: Status post PCI, will continue aspirin, add back to previous regimen of statin as well as low-dose metoprolol. * Hypertension: We will restart patient previous home dose of metoprolol, PRN hydralazine. * Hyperlipidemia: We will restart patient previous dose of statin, FLP in AM. * Tobacco Abuse: Encouraged cessation, inpatient consultation per RT, NR if desired. DVT prophylaxis: Heparin drip. CODE STATUS: Full code. Charges/Coding Visit Charges Inpatient E&M: 26106 Subs Hosp L2
[2023-01-19 09:08] LABS: Troponin-I HS 1459 pg/mL (3.0-78.0)
--- NOTE | 2023-01-19 10:50 | CASEMGMT ---
RN?CM?TECHNICAL SALES ENGINEER?CM?to room to meet with patient for initial transition planning/care coordination?assessment.?RN?CM?introduced self and role at [facility].? Pt voices understanding and consents to?assessment?at this time.? Pt resting in bed in no distress at this time.? @ bedside. Pt is A/O at this time and answers all questions appropriately.?? Care providers, pharmacy, and demographics verified/updated at this time. PCP: Dr Kraus Specialists: none Preferred Pharmacy: [facility] Insurance: [facility] Prescription Benefit:?Yes. Pt has been on Brilinta in the past and used the 30-day savings card. He is not sure if he had a different insurance at that time. Living Will/HPOA:? Pt does not currently have LW/HCPOA. LNOK: , Nancy Living Arrangements: Lives w/. Independent. Works full-time Transportation:?Pt states drives self and states no transportation concerns at this time.? also drives. DME: ? Denies using any DME and denies needs.? HHC/SNF: No hx of either. No needs identified. Pt wishes to return home and states has no concerns with going home at time of discharge.? Pt states does not drink ETOH.??He smokes 5-7 cigars a day. CM?to follow for any further discharge planning/needs.? Pt voices no further concerns/needs at this time.? Advised pt to ask for?CM?if any further questions/concerns/needs arise.? Voices understanding. PLAN:??Home Follow for possible anti-coag. Jerome CONNOLLYN?RN?CM
[2023-01-19 11:24] LABS: Partial Thromboplast Time 46.2 Seconds (24.1-36.2)
--- NOTE | 2023-01-19 14:32 | PCM.CONS.C ---
Assessment & Plan Assessment/Plan (1) NSTEMI, initial episode of care: PLAN: Continue aspirin, heparin, statin, metoprolol. Cardiac cath on Saturday. HPI Consult Data Date of Consult: 01/19/23 HPI Narrative Reason for Consultation: Non-STEMI HPI Narrative: TERRY STAHL, is a 62 M who presents with left-sided chest pain associated with diaphoresis similar to what he had prior to his NH in 2017. He has history of CAD status post NH in 2017 treated with stent to the circumflex. Patient has had chest pain at 12:30 AM this morning. No further chest pain. His troponin went up to 1400s. [facility] Medical History (Updated 01/19/23 @ 09:[address] Augustine Smith, DO) Atherosclerosis of coronary artery of [place] heart without angina pectoris Dyslipidemia Hypertension Nicotine dependence ST elevation (STEMI) myocardial infarction Home Medications NK 01/19/23 [History Last Taken Unknown] Allergy/AdvReac Type Severity Reaction Status Date / Time No Known Allergies Allergy Verified 01/19/23 02:08 Family History (Updated 01/19/23 @ 05:[address] Winnie Julien MD) Mother No significant past medical history Father Cancer Surgical History History of coronary artery stent placement (09/15/16) History of squamous cell carcinoma excision (~11/2018) Social History (Updated 01/19/23 @ 05:[address] Winnie Julien MD) household members: spouse Smoking Status: Current some day smoker tobacco type: cigars how long ago did patient quit smoking: Quit cigarettes following prior NH, now only occasional cigar. alcohol intake: current alcohol intake frequency: holidays/special occasions only substance use type: former substance user caffeine: Yes Type: coffee Number of servings: 2 Physical Exam Const alert and oriented x3 HEENT normocephalic Eyes no scleral icterus Resp normal respiratory effort Psych mental status grossly normal Risk Stratification Risk Stratification Applicable: No Charges/Coding Visit Charges Inpatient E&M: 08604 Init Hosp L2 Objective Data Vital Signs: Vital Signs Temp Pulse Resp BP Pulse Ox O2 Del Method 98.3 F 67 16 117/76 97 Room Air 01/19/23 13:10 01/19/23 13:10 01/19/23 13:10 01/19/23 13:10 01/19/23 13:10 01/19/23 13:10 Oxygen Delivery Method Room Air Weight: 140 lb 10.479 oz Body Mass Index (BMI) 20.2 Intake & Output: Intake and Output for Last 24 Hours 01/17/23 01/18/23 01/19/23 23:59 23:59 23:59 Intake Total 57.2 / 57.2 Balance 57.2 / 57.2 Lab / Micro Data 01/19/23 02:15 01/19/23 02:15 Labs: Laboratory Results - last 24 hr 01/19/23 02:15: WBC 11.0, RBC 4.76, Hgb 15.4, Hct 47.8, MCV 100.4 H, MCH 32.4 H, MCHC 32.2, RDW Std Deviation 51.0 H, RDW Coeff of [place] 13.5, Plt Count 207, MPV 9.7, Immature Gran % (Auto) 0.700, Neut % (Auto) 65.3, Lymph % (Auto) 20.9, [place] % (Auto) 8.0, Eos % (Auto) 4.4, Baso % (Auto) 0.7, Absolute Neuts (auto) 7.2, Absolute Lymphs (auto) 2.30, Nucleated RBC % 0, D-Dimer Quant (PE/DVT) 0.33, Sodium 138, Potassium 3.4 L, Chloride 104, Carbon Dioxide 29.0, Anion Gap 5, BUN 9, Creatinine 1.02, Estim Creat Clear Calc 73.31, Est GFR (MDRD) Af Amer 96, Est GFR (MDRD) Non-Af 79, BUN/Creatinine Ratio 8.8 L, Glucose 165 H, Calcium 9.0, Magnesium 2.1, Troponin I High Sens 25 01/19/23 02:29: PT 13.6, INR 1.0, APTT 30.0 01/19/23 04:13: Troponin I High Sens 498 H* 01/19/23 08:12: Hemoglobin A1c 5.3, Troponin I High Sens 1459 H* 01/19/23 11:04: APTT 46.2 H Micro: Microbiology 01/19/23 05:13 Mucosa - Nasopharyngeal Respiratory Panel (PCR) - Final Rhinovirus 01/19/23 02:28 Nasal Secretion SARS-CoV-2 & FLU Antigen (Rapid) - Final Cardiology Labs/Tests 01/19/23 02:15: WBC 11.0, RBC 4.76, Hgb 15.4, Hct 47.8, MCV 100.4 H, MCH 32.4 H, MCHC 32.2, Plt Count 207, MPV 9.7, Immature Gran % (Auto) 0.700, Neut % (Auto) 65.3, Lymph % (Auto) 20.9, [place] % (Auto) 8.0, Eos % (Auto) 4.4, Baso % (Auto) 0.7, Absolute Neuts (auto) 7.2, Nucleated RBC % 0, D-Dimer Quant (PE/DVT) 0.33, Sodium 138, Potassium 3.4 L, Chloride 104, Carbon Dioxide 29.0, Anion Gap 5, BUN 9, Creatinine 1.02, Est GFR (MDRD) Af Amer 96, Est GFR (MDRD) Non-Af 79, BUN/Creatinine Ratio 8.8 L, Glucose 165 H, Calcium 9.0, Magnesium 2.1 01/19/23 02:29: PT 13.6, INR 1.0, APTT 30.0 01/19/23 08:12: Hemoglobin A1c 5.3 01/19/23 11:04: APTT 46.2 H Rhythm: EKG: ECHO: Stress Test: Cardiac Cath: PCI: CT Surgery: Holter monitor: EPS: PPM: CXR: Chest CT Scan: Radiography Diagnostic Testing: Radiology Impression Chest X-Ray 01/19/23 02:24 IMPRESSION: No evidence of acute cardiopulmonary disease. Electronically Signed: Eleazar New DO at 2:44 EDT , Echocardiogram 01/19/23 05:31 Interpretation Summary The estimated ejection fraction is 35-40 %. Stage [address] [place] : Hypokinetic. septal hypokinesis Ordering Physician: Winnie Julien Referring Physician: Quinton Kraus Performed By: Jacki Hastings RDCS, RVT
[2023-01-19] MEDS: Atorvastatin Calcium 80 MG Tablet PO (19:58)
[2023-01-19] MEDS: Temazepam 15 MG Capsule PO (19:58)
[2023-01-19] MEDS: Heparin Injection (Vial) 5,000 UNIT/ML VIAL IV (20:45)
[2023-01-20] VITALS (7 sets, daily range): BP systolic 128–143; BP diastolic 71–85; PULSE 61–66; RESP 16–18; TEMP 36.2–37; O2SAT 95–98; BMI 26.0
[2023-01-20 01:59] LABS: Absolute Lymphocyte Count 1.44 X10^3/uL (0.83-4.51); Absolute Neutrophil Count 6.6 X10^3/uL (2.0-7.7); Basophil# 0.06 X10^3/uL; Basophil% 0.6 % (0-1); Eosinophil# 0.25 X10^3/uL; Eosinophils% 2.7 % (0-5); Hematocrit 42.4 % (40-54); Hemoglobin 14.1 g/dL (13.0-16.5); Lymphocyte # 1.44 X10^3/ul (0.83-4.51); Lymphocyte % 15.6 % (19-41); Mean Corp Hgb Conc 33.3 g/dL (32-36); Mean Corpuscular Hgb 32.3 pg (27.0-32.0); Mean Platelet Vol. 9.5 fl (6.2-12.0); Monocyte% 9.7 % (0-10); NRBC Flagged by Analyzer 0 % (0-5); Neutrophil # 6.57 X10^3/uL (2.7-7.7); Neutrophil % 71.1 % (47-70); Platelet Count 196 K/mm3 (150-450); RBC Distribution Width CV 13.6 % (11.6-14.6); Red Blood Count 4.37 M/mm3 (4.6-6.2); White Blood Count 9.3 K/mm3 (4.4-11.0)
[2023-01-20 02:39] LABS: Partial Thromboplast Time 51.4 Seconds (24.1-36.2)
[2023-01-20 02:43] LABS: ALB/GLOB Ratio 1.1 RATIO (0.9-2.4); AST(SGOT) 23 U/L (15-37); Alanine Aminotransfer ALT/SGPT 18 U/L (16-61); Albumin, Serum 3.3 g/dL (3.2-5.0); Alkaline Phosphatase 96 U/L (45-117); Anion Gap 2 (5-15); BUN 8 mg/dL (7-18); BUN/Creat Ratio 10.9 RATIO (10-20); Calcium,Total 8.9 mg/dL (8.5-10.1); Chloride 108 mmol/L (98-107); Creatinine, Serum 0.74 mg/dL (0.70-1.30); EST Glomerular Filtration Rate 115 mL/min (>60); Est Glom Filt Rate - Afr Amer 139 mL/min (>60); Glucose 107 mg/dL (74-106); Potassium 3.9 mmol/L (3.5-5.1); Protein, Total 6.3 g/dL (6.4-8.2); Sodium Level 139 mmol/L (136-145)
[2023-01-20] MEDS: guaiFENesin 10 ML UDC (200MG/10ML) 20 ML PO ×4 (03:33→21:18)
--- NOTE | 2023-01-20 08:01 | PCM.PN.HOSP ---
Reason for Visit Reason for Visit: Diagnoses Non-ST elevation (NSTEMI) myocardial infarction (01/19/23) Subjective Subjective No chest pain. Coughing fits helped with guaifenesin. Objective Data Objective Data Vital Signs: Vital Signs Temp Pulse Resp BP Pulse Ox O2 Del Method 36.9 C 66 18 134/79 H 95 Room Air 01/20/23 05:45 01/20/23 05:45 01/20/23 05:45 01/20/23 05:45 01/20/23 05:45 01/20/23 05:45 Oxygen Delivery Method Room Air Weight: 82.6 kg Body Mass Index (BMI) 26.0 Intake & Output: Intake and Output for Last 24 Hours 01/18/23 01/19/23 01/20/23 23:59 23:59 22:59 Intake Total 1474.15 / 1474.15 318.28 / 318.28 Balance 1474.15 / 1474.15 318.28 / 318.28 Lab / Micro Data 01/20/23 01:47 EST 01/20/23 01:47 EST Labs: Laboratory Results - last 24 hr 01/19/23 08:12: Troponin I High Sens 1459 H* 01/19/23 11:04: APTT 46.2 H 01/19/23 18:32: APTT 36.0 01/20/23 01:47 EST: WBC 9.3, RBC 4.37 L, Hgb 14.1, Hct 42.4, MCV 97.0 H, MCH 32.3 H, MCHC 33.3, RDW Std Deviation 49.0 H, RDW Coeff of Roman 13.6, Plt Count 196, MPV 9.5, Immature Gran % (Auto) 0.300, Neut % (Auto) 71.1 H, Lymph % (Auto) 15.6 L, Vermilion % (Auto) 9.7, Eos % (Auto) 2.7, Baso % (Auto) 0.6, Absolute Neuts (auto) 6.6, Absolute Lymphs (auto) 1.44, Nucleated RBC % 0, APTT 51.4 H, Sodium 139, Potassium 3.9, Chloride 108 H, Carbon Dioxide 29.0, Anion Gap 2 L, BUN 8, Creatinine 0.74, Estim Creat Clear Calc 95.80, Est GFR (MDRD) Af Amer 139, Est GFR (MDRD) Non-Af 115, BUN/Creatinine Ratio 10.9, Glucose 107 H, Calcium 8.9, Total Bilirubin 0.60, AST 23, ALT 18, Alkaline Phosphatase 96, Total Protein 6.3 L, Albumin 3.3, Globulin 3.0, Albumin/Globulin Ratio 1.1 Micro: Microbiology 01/19/23 05:13 Mucosa - Nasopharyngeal Respiratory Panel (PCR) - Final Rhinovirus 01/19/23 02:28 Nasal Secretion SARS-CoV-2 & FLU Antigen (Rapid) - Final Radiography Diagnostic Testing: Radiology Impression Echocardiogram 01/19/23 05:31 Interpretation Summary The estimated ejection fraction is 35-40 %. Stage 2 diastolic dysfunction. Temperance : Hypokinetic. septal hypokinesis Ordering Physician: Winnie Julien Referring Physician: Quinton Kraus Performed By: Jacki Hastings, AGAPITO, RVT Physical Exam Const alert and no apparent distress HEENT head/scalp atraumatic and moist oral mucous membranes Resp normal respiratory effort, no retractions, no use of accessory muscles and clear to auscultation bilaterally Cardio regular rate, regular rhythm, S1 normal heart sound and S2 normal heart sound GI normal to inspection, nondistended, normoactive bowel sounds, soft to palpation and non-tender Extremity normal to inspection Assessment & Plan Assessment/Plan (1) NSTEMI, initial episode of care: PLAN: Chest Pain w/ Acute NSTEMI: EKG in ED w/ sinus rhythm with no acute evidence of ischemia, CXR w/ no acute cardiopulmonary findings. Trop peaked at 1459 Continue medical management w/ asa, add back low-dose BB, add back high-dose statin, heparin gtt. Echo shows and EF 35-40%. Hypokinetic apex and septum. (65% in 2019) Cardiology consulted, plan for [facility] on 01/21. Check lipid panel. PLAN: Plan URI: +Rhinovirus. Supportive mgmt. Guaifenesin PRN. Chronic conditions: CAD: Status post PCI, will continue aspirin, add back to previous regimen of statin as well as low-dose metoprolol. Hypertension: We will restart patient previous home dose of metoprolol, PRN hydralazine. Hyperlipidemia: We will restart patient previous dose of statin, FLP in AM. Tobacco Abuse: Encouraged cessation, inpatient consultation per RT, NR if desired. DVT prophylaxis: Heparin drip. CODE STATUS: Full code. Charges/Coding Visit Charges Inpatient E&M: 58467 Subs Hosp L2
[2023-01-20] MEDS: HEPARIN/D5w 25,000 UNITS 25,000 UNITS/250 ML IV.SOLN. 12 UNITS CONT INF (08:34)
[2023-01-20] MEDS: Metoprolol(XL)Succ 25 MG Tablet 12.5 MG PO (08:35)
[2023-01-20] MEDS: Aspirin 81 MG TAB.CHEW PO (08:35)
[2023-01-20 09:20] LABS: Partial Thromboplast Time 52.8 Seconds (24.1-36.2)
--- NOTE | 2023-01-20 16:03 | PCM.PN.CARD ---
Subjective Subjective Doing well. Stable. Objective Data Vital Signs: Vital Signs Temp Pulse Resp BP Pulse Ox O2 Del Method 97.7 F L 62 16 129/76 H 97 Room Air 01/20/23 14:30 01/20/23 14:30 01/20/23 14:30 01/20/23 14:30 01/20/23 14:30 01/20/23 14:30 Oxygen Delivery Method Room Air Weight: 182 lb 1.629 oz Body Mass Index (BMI) 26.0 Intake & Output: Intake and Output for Last 24 Hours 01/18/23 01/19/23 01/20/23 23:59 23:59 22:59 Intake Total 1474.15 / 1474.15 858.85 / 858.85 Balance 1474.15 / 1474.15 858.85 / 858.85 Lab / Micro Data 01/20/23 01:47 EST 01/20/23 01:47 EST Labs: Laboratory Results - last 24 hr 01/19/23 18:32: APTT 36.0 01/20/23 01:47 EST: WBC 9.3, RBC 4.37 L, Hgb 14.1, Hct 42.4, MCV 97.0 H, MCH 32.3 H, MCHC 33.3, RDW Std Deviation 49.0 H, RDW Coeff of Roman 13.6, Plt Count 196, MPV 9.5, Immature Gran % (Auto) 0.300, Neut % (Auto) 71.1 H, Lymph % (Auto) 15.6 L, Carlisle % (Auto) 9.7, Eos % (Auto) 2.7, Baso % (Auto) 0.6, Absolute Neuts (auto) 6.6, Absolute Lymphs (auto) 1.44, Nucleated RBC % 0, APTT 51.4 H, Sodium 139, Potassium 3.9, Chloride 108 H, Carbon Dioxide 29.0, Anion Gap 2 L, BUN 8, Creatinine 0.74, Estim Creat Clear Calc 95.80, Est GFR (MDRD) Af Amer 139, Est GFR (MDRD) Non-Af 115, BUN/Creatinine Ratio 10.9, Glucose 107 H, Calcium 8.9, Total Bilirubin 0.60, AST 23, ALT 18, Alkaline Phosphatase 96, Total Protein 6.3 L, Albumin 3.3, Globulin 3.0, Albumin/Globulin Ratio 1.1 01/20/23 08:55: APTT 52.8 H Cardiology Labs/Tests 01/19/23 18:32: APTT 36.0 01/20/23 01:47 EST: WBC 9.3, RBC 4.37 L, Hgb 14.1, Hct 42.4, MCV 97.0 H, MCH 32.3 H, MCHC 33.3, Plt Count 196, MPV 9.5, Immature Gran % (Auto) 0.300, Neut % (Auto) 71.1 H, Lymph % (Auto) 15.6 L, Carlisle % (Auto) 9.7, Eos % (Auto) 2.7, Baso % (Auto) 0.6, Absolute Neuts (auto) 6.6, Nucleated RBC % 0, APTT 51.4 H, Sodium 139, Potassium 3.9, Chloride 108 H, Carbon Dioxide 29.0, Anion Gap 2 L, BUN 8, Creatinine 0.74, Est GFR (MDRD) Af Amer 139, Est GFR (MDRD) Non-Af 115, BUN/Creatinine Ratio 10.9, Glucose 107 H, Calcium 8.9, Total Bilirubin 0.60 01/20/23 08:55: APTT 52.8 H Rhythm: EKG: ECHO: Stress Test: Cardiac Cath: PCI: CT Surgery: Holter monitor: EPS: PPM: CXR: Chest CT Scan: Physical Exam Const alert and oriented x3 HEENT normocephalic Eyes no scleral icterus Resp normal respiratory effort Psych mental status grossly normal Assessment & Plan Assessment/Plan (1) NSTEMI, initial episode of care: PLAN: Continue aspirin, heparin, statin, metoprolol. Cardiac cath on tomorrow. Charges/Coding Visit Charges Inpatient E&M: 84621 Subs Hosp L1
[2023-01-20 16:56] LABS: Partial Thromboplast Time 59.4 Seconds (24.1-36.2)
[2023-01-20] MEDS: Atorvastatin Calcium 80 MG Tablet PO (21:17)
[2023-01-20] MEDS: Temazepam 15 MG Capsule PO (21:18)
[2023-01-20 22:33] LABS: Partial Thromboplast Time 60.2 Seconds (24.1-36.2)
[2023-01-21] VITALS (13 sets, daily range): BP systolic 128–145; BP diastolic 69–90; PULSE 55–72; RESP 16–18; TEMP 35.9–36.8; O2SAT 93–98; BMI 19.8
[2023-01-21 04:59] LABS: Partial Thromboplast Time 55.6 Seconds (24.1-36.2)
[2023-01-21 05:36] LABS: Cholesterol 176 mg/dL (200); High Density Lipoprotein 39 mg/dL; Triglycerides 111 mg/dL; Very Low Density Lipoprotein 22 mg/dL (5-40)
--- NOTE | 2023-01-21 05:55 | EKG12_ITS ---
Test Reason : AM EKG Blood Pressure : / mmHG Vent. Rate : 066 BPM Atrial Rate : 066 BPM P-R Int : 128 ms QRS Dur : 096 ms QT Int : 452 ms P-R-T Axes : 083 028 109 degrees QTc Int : 473 ms Normal sinus rhythm Possible Left atrial enlargement Indeterminate axis Incomplete right bundle branch block Anterior infarct , age undetermined ST & T wave abnormality, consider lateral ischemia Abnormal ECG When compared with ECG of 19-JAN-2023 02:09, MANUAL COMPARISON REQUIRED, DATA IS UNCONFIRMED Confirmed by LJ MCGOWAN, EUGENIA ([id number]), photographic editor DINORA AMAYA ([id number]) on 01/28/2023 11:04:46 AM Referred By: Confirmed By:LULU CALHOUN MD
[2023-01-21] MEDS: Aspirin 81 MG TAB.CHEW PO (06:56)
[2023-01-21] MEDS: Metoprolol(XL)Succ 25 MG Tablet 12.5 MG PO (06:56)
--- NOTE | 2023-01-21 07:31 | PN.HOSP_ITS ---
Reason for Visit Reason for Visit: Diagnoses Non-ST elevation (NSTEMI) myocardial infarction (01/19/23) Subjective Subjective No chest pain. Objective Data Objective Data Vital Signs: Vital Signs Temp Pulse Resp BP Pulse Ox O2 Del Method 36.1 C L 69 18 145/90 H 94 Room Air 01/21/23 05:59 01/21/23 06:56 01/21/23 05:59 01/21/23 06:56 01/21/23 05:59 01/21/23 05:59 Oxygen Delivery Method Room Air Weight: 63 kg Body Mass Index (BMI) 19.8 Intake & Output: Intake and Output for Last 24 Hours 01/20/23 01/20/23 01/21/23 00:59 23:59 23:59 Intake Total 80 / 80 Balance 80 / 80 Lab / Micro Data 01/20/23 01:47 EST 01/20/23 01:47 EST Labs: Laboratory Results - last 24 hr 01/20/23 08:55: APTT 52.8 H 01/20/23 16:30: APTT 59.4 H 01/20/23 22:15: APTT 60.2 H 01/21/23 04:35: APTT 55.6 H, Triglycerides 111, Cholesterol 176, LDL Cholesterol 115, VLDL Cholesterol 22, HDL Cholesterol 39 L Micro: Microbiology 01/19/23 05:13 Mucosa - Nasopharyngeal Respiratory Panel (PCR) - Final Rhinovirus 01/19/23 02:28 Nasal Secretion SARS-CoV-2 & FLU Antigen (Rapid) - Final Physical Exam Const alert and no apparent distress Resp normal respiratory effort, no retractions, no use of accessory muscles and clear to auscultation bilaterally Cardio regular rate, regular rhythm, S1 normal heart sound and S2 normal heart sound GI normal to inspection, nondistended, normoactive bowel sounds, soft to palpation, non-tender and non-distended Extremity normal to inspection Assessment & Plan Assessment/Plan (1) NSTEMI, initial episode of care: PLAN: Chest Pain w/ Acute NSTEMI: EKG in ED w/ sinus rhythm with no acute evidence of ischemia, CXR w/ no acute cardiopulmonary findings. Trop peaked at 1459 Continue medical management w/ asa, add back low-dose BB, add back high-dose statin, heparin gtt. Echo shows and EF 35-40%. Hypokinetic apex and septum. (65% in 2019) Cardiology consulted. 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 Dr. Garcia spoke w CTS at [facility]. Has been accepted and will be transferred there today. Check lipid panel. PLAN: Plan URI: +Rhinovirus. Supportive mgmt. Guaifenesin PRN. Chronic conditions: * CAD: Status post PCI, will continue aspirin, add back to previous regimen of statin as well as low-dose metoprolol. * Hypertension: We will restart patient previous home dose of metoprolol, PRN hydralazine. * Hyperlipidemia: We will restart patient previous dose of statin, FLP in AM. * Tobacco Abuse: Encouraged cessation, inpatient consultation per RT, NR if desired. DVT prophylaxis: Heparin drip. CODE STATUS: Full code. Charges/Coding Visit Charges Inpatient E&M: 29730 Subs Hosp L2
--- NOTE | 2023-01-21 10:22 | CASEMGMT ---
[facility]urance [facility] hospitals [facility] is recommended is as follows:. [facility], [facility], [facility], [facility], [facility], [facility], [facility]), [facility], [facility], [facility], and . Ashley Che, Discharge Planning Asst.
--- NOTE | 2023-01-21 13:07 | DS.PCM_ITS ---
Providers Date of Admission: 01/19/23 Primary Care Physician: Dr. Quinton Kraus MD Reason For Visit: NSTEMI Diagnosis Discharge Diagnosis (1) NSTEMI, initial episode of care: Status: Acute Code(s): I21.4 - Non-ST elevation (NSTEMI) myocardial infarction Plan: Chest Pain w/ Acute NSTEMI: EKG in ED w/ sinus rhythm with no acute evidence of ischemia, CXR w/ no acute cardiopulmonary findings. Trop peaked at 1459 Continue medical management w/ asa, add back low-dose BB, add back high-dose statin, heparin gtt. Echo shows and EF 35-40%. Hypokinetic apex and septum. (65% in 2019) Cardiology consulted. 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 Dr. Garcia spoke w CTS at [facility]. Has been accepted and will be transferred there today. Check lipid panel. Plan URI: +Rhinovirus. Supportive mgmt. Guaifenesin PRN. Chronic conditions: * CAD: Status post PCI, will continue aspirin, add back to previous regimen of statin as well as low-dose metoprolol. * Hypertension: We will restart patient previous home dose of metoprolol, PRN hydralazine. * Hyperlipidemia: We will restart patient previous dose of statin, FLP in AM. * Tobacco Abuse: Encouraged cessation, inpatient consultation per RT, NR if desired. DVT prophylaxis: Heparin drip. CODE STATUS: Full code. Medications at Discharge Home Medications NK 01/19/23 Hospital Course Procedures 2-D Echocardiogram and Cardiac catheterization Summary of Care Provided Minutes Spent on Discharge: 32 Hospital Course: Patient presents with chest pain and a non-ST ovation myocardial infarction. Patient underwent a left heart catheterization today and showed multivessel disease. Cardiology discussed with cardiothoracic surgery at [facility]. Patient has been accepted and will be transferred there today in stable condition. Currently, the patient is chest pain-free. Weight / BMI Weight Weight: 63 kg Body Mass Index (BMI) 19.8 ABG / Lab / Microbiology Data 01/20/23 01:47 EST 01/20/23 01:47 EST Laboratory: Laboratory Results - last 24 hr 01/20/23 16:30: APTT 59.4 H 01/20/23 22:15: APTT 60.2 H 01/21/23 04:35: APTT 55.6 H, Triglycerides 111, Cholesterol 176, LDL Cholesterol 115, VLDL Cholesterol 22, HDL Cholesterol 39 L Microbiology: Microbiology 01/19/23 05:13 Mucosa - Nasopharyngeal Respiratory Panel (PCR) - Final Rhinovirus 01/19/23 02:28 Nasal Secretion SARS-CoV-2 & FLU Antigen (Rapid) - Final D/C Instructions Discharge Diet: Low fat / Low cholesterol Meaningful Use Info Meaningful Use Diagnoses (Choose all that apply): AMI AMI/Post PCI/Angioplasty Aspirin given w/in 24hrs of arrival?: Yes ASA at discharge?: Yes Antiplatelet Therapy at Discharge:: No Reason Antiplatelet Therapy not ordered:: Need for CABG Statins at discharge?: Yes López/ARB at discharge?: No Reason López/ARB not ordered:: Not indicated Beta Jemal at discharge?: Yes Done w/ Acute ND measure.: Yes Documented LVEF (%): 35 Discharge Plan Admission Admit Date/Time: 01/19/23 05:01 Primary Reason for Your Visit: Non-STEMI Attending Provider: Augustine Smith Primary Care Provider: Quinton Kraus Consulting Providers: Winnie Julien Discharge Orders/Prescriptions Prescriptions: No Action NK Referrals / Follow Up: Quinton Kraus MD [Primary Care Provider] - Disposition Disposition (needs filled in before D/C Order can be placed): Acute Care Hospital Charges/Coding Visit Charges Inpatient E&M: 33119 Disch Hosp >30min
--- NOTE | 2023-01-21 16:18 | CL.D_ITS ---
Patient Name: TERRY STAHL Study Date: 01/21/2023 Performing: Abdiaziz Garcia MD Ht: 70 inches 177.8 cm : 1960 Wt: 139.1 lbs 63 kg Age: 62 Gender: male BSA: 1.79 PROCEDURE(S) PERFORMED [id number])[facility] CLINICAL PROFILE AND INDICATIONS Indications: ACS <= 24 hrs Heart Failure: None Stress/Imaging Stress/Image Study Performed: No CAD Presentations: Non-STEMI. Symptom onset Date/Time: Time Not Available CONCLUSIONS Multivessel coronary artery disease as described RECOMMENDATIONS CT surgery consult for heart team approach to revascularization DESCRIPTION OF PROCEDURE The patient arrived to the procedure lab. The risks and benefits of the procedure as well as a full description of our services here and current unavailability of surgical backup were fully explained to the patient and/or their significant other prior to the catheterization. The Timeout was completed, verifying the correct patient and procedure. The patient's procedural site was prepped and draped in the usual fashion. Local anesthetic was given subcutaneously to right radial region with Lidocaine 2%. Using a modified Seldinger technique, arterial access was obtained via the right radial artery, a 6Fr sheath was inserted. Left Coronary Artery selective angiography was performed in multiple views using a 5 Fr. JL3.5 catheter. Right Coronary Artery selective angiography was then performed in multiple views using a 5 Fr. JR 4 catheter.The arterial sheath was pulled and a TR Band was applied for hemostasis - 15cc air CORONARY ANGIOGRAPHY DOMINANCE: Right Dominant LEFT MAIN: Mild luminal irregularities LEFT ANTERIOR DESCENDING ARTERY: 90% stenosis in the mid LAD close to the origin of the medium to large size diagonal (D2) branch. Distal to this there is a long segment with 80% stenosis in the mid LAD as well. DIAGONAL 2: Ostial - 70 % Stenosis CIRCUMFLEX ARTERY: Mild to moderate instent restenosis OM 2: Proximal - 80 % Stenosis RIGHT CORONARY ARTERY: Mid RCA has a 70% lesion followed by 80% stenotic lesion further distally COMPLICATIONS No Complications PROCEDURE MEDICATIONS Fentanyl 50 mcg IV Versed 1 mg IV Oxygen: 2 L/min via nasal cannula Heparin given IA 01/21/2023 11:10:06 Verapamil 2.5mg, Ntg 100mcgs, 3000 units of Heparin given IA 01/21/2023 11:10:06 SUMMARY OF HEMODYNAMIC DATA Time AIR REST ECG 11:07:08 AO 128/80 (105) SA 11:13:31 Signed By Abdiaziz Garcia MD On 01/21/2023 16:17:24 Abdiaziz Garcia MD
== END 2023-01-21 14:41 | disposition short-term general hospital (02) | DRG 282 ==
LOC: ED 05:00 → PCU 05:14
PROVIDERS: Admitting Provider Family Medicine; Emergency Provider Emergency Medicine; PCP Family Medicine
DX: I21.4 Non-ST elevation (NSTEMI) myocardial infarction (principal); B97.89 Other viral agents as the cause of diseases classified elsewhere; I10 Essential (primary) hypertension; E78.5 Hyperlipidemia, unspecified; I25.10 Atherosclerotic heart disease of native coronary artery without angina pectoris; E87.6 Hypokalemia; R73.9 Hyperglycemia, unspecified; Z87.891 Personal history of nicotine dependence; Z79.82 Long term (current) use of aspirin; Z79.01 Long term (current) use of anticoagulants; Z95.5 Presence of coronary angioplasty implant and graft
CPT/HCPCS: 36415; 71046; 80048; 80053; 80061; 83036; 83735; 84484; 85025; 85379; 85610; 85730; 87428; 87633; 93005; 93306; 93454; 94668; 97802; 99152; 99153; 99252; 99285; 99406; J7030; Q9957; Q9967; A4216; C1769; C1894; C8929; G0463